=== PATIENT | female | born 1940 | race Caucasian/White ===

== ENCOUNTER 2017-09-08 16:22 | Emergency (ER) | payer MEDICARE, OTHER, MEDICAID ==
[~2017-09-08] VITALS: Ht 157.5 cm; Wt 90.9 kg
[~2017-09-08 16:22] MED LIST: ACET-812 PO; ALBU8.5H8 IH; AMIO100T4 PO; AMLO10TA PO; ATOR20TA66 PO; CALC-331 PO; CHOL100046 PO; DULO60CA64 PO; FURO40TA4 PO; HYDR-569 PO; LEVO100T PO; LISI-600 PO; METO25TA6 PO; NITR0.4T PO; OMEG500C PO; POLY17PO10 PO; POTA10TA36 PO; RIVA20TA PO; TRAZ150T78 PO; VAL5T PO
[2017-09-08] MEDS ORDERED: LIDOcaine 5% patch TP STA (16:38)
[2017-09-08 17:03] LABS: BASOPHILS % (AUTO) 0.3 % (0-1); EOSINOPHILS # (AUTO) 0.2 X10'3 (0-0.9); EOSINOPHILS % (AUTO) 2.2 % (0-6); HEMATOCRIT 37.7 % (35.0-45.0); HEMOGLOBIN 12.8 g/dl (12.0-16.0); LYMPHOCYTES # (AUTO) 2.3 X10'3 (1.1-4.8); LYMPHOCYTES % (AUTO) 24.1 % (21-51); MEAN CORPUSCULAR HEMOGLOBIN 28.8 PG (27.0-31.0); MEAN CORPUSCULAR HGB CONC 34.1 % (33.0-36.5); MEAN CORPUSCULAR VOLUME 84.5 FL (78-98); MEAN PLATELET VOLUME 8.9 FL (7.4-10.4); MONOCYTES # (AUTO) 0.5 X10'3 (0-0.9); MONOCYTES % (AUTO) 5.5 % (2-12); NEUTROPHILS # (AUTO) 6.4 X10'3 (1.8-7.7); NEUTROPHILS % (AUTO) 67.9 % (42-75); PLATELET COUNT 237 X10'3 (140-440); RED BLOOD COUNT 4.46 X10'6 (4.20-5.60); RED CELL DISTRIBUTION WIDTH 14.3 % (11.5-14.5); WHITE BLOOD COUNT 9.4 X10'3 (4.5-11.0)
[2017-09-08 17:18] LABS: ALANINE AMINOTRANSFERASE 23 U/L (12-78); ALBUMIN 4.1 G/DL (3.4-5.0); ALKALINE PHOSPHATASE 104 IU/L (46-116); ANION GAP 8 (8-16); ASPARTATE AMINO TRANSFERASE 17 U/L (10-37); BILIRUBIN,TOTAL 0.4 MG/DL (0.1-1.0); BLOOD UREA NITROGEN 14 MG/DL (7-18); BUN/CREATININE RATIO 11.7 (6.6-38.0); CALCIUM 9.8 MG/DL (8.5-10.1); CHLORIDE 101 MMOL/L (99-107); GLUCOSE 87 MG/DL (70-104); MAGNESIUM 2.1 MG/DL (1.5-2.4); SODIUM 142 MMOL/L (135-145); TOTAL CARBON DIOXIDE 33.3 MMOL/L (24-32); TOTAL PROTEIN 8.1 G/DL (6.4-8.2); eGFR 44 ML/MIN
[2017-09-08] MEDS ORDERED: CYCL-1 PO (20:16)
[2017-09-08] MEDS ORDERED: DICL100G15 TOP (20:16)
[2017-09-08] MEDS ORDERED: LIDO1ADH41 TOP (20:16)
[2017-09-08 21:47] VITALS: BP 151/74
== END 2017-09-08 21:40 | disposition home or self-care (01) ==
LOC: ER 16:22
DX: S16.1XXA Strain of muscle, fascia and tendon at neck level, initial encounter (principal); M65.20 Calcific tendinitis, unspecified site; I48.91 Unspecified atrial fibrillation; I10 Essential (primary) hypertension; J44.9 Chronic obstructive pulmonary disease, unspecified; E03.9 Hypothyroidism, unspecified; I25.10 Atherosclerotic heart disease of native coronary artery without angina pectoris; Z86.718 Personal history of other venous thrombosis and embolism; Z90.49 Acquired absence of other specified parts of digestive tract; Z60.2 Problems related to living alone; Z88.8 Allergy status to other drugs, medicaments and biological substances; X58.XXXA Exposure to other specified factors, initial encounter; Y93.89 Activity, other specified; Y92.89 Other specified places as the place of occurrence of the external cause; Y99.8 Other external cause status
CPT/HCPCS: 36415; 71045; 73030; 80053; 83735; 84484; 85025; 99285

== ENCOUNTER 2018-05-14 22:48 | Inpatient (IN) | payer MEDICARE, OTHER, MEDICAID ==
[~2018-05-14] VITALS: Ht 160 cm; Wt 91.0 kg
[~2018-05-14 22:48] MED LIST changes: +CYCL-1 PO; +DICL100G15 TOP; +HYDR-4383 PO; -HYDR-569 PO; +LIDO1ADH41 TOP
[2018-05-14 23:11] LABS: BASOPHILS % (AUTO) 0.2 % (0-1); EOSINOPHILS % (AUTO) 0.1 % (0-6); HEMATOCRIT 36.9 % (35.0-45.0); HEMOGLOBIN 12.2 g/dl (12.0-16.0); LYMPHOCYTES # (AUTO) 1.8 X10'3 (1.1-4.8); LYMPHOCYTES % (AUTO) 13.1 % (21-51); MEAN CORPUSCULAR HEMOGLOBIN 29.1 PG (27.0-31.0); MEAN CORPUSCULAR VOLUME 88.1 FL (78-98); MEAN PLATELET VOLUME 7.9 FL (7.4-10.4); MONOCYTES # (AUTO) 0.6 X10'3 (0-0.9); MONOCYTES % (AUTO) 4.1 % (2-12); NEUTROPHILS # (AUTO) 11.3 X10'3 (1.8-7.7); NEUTROPHILS % (AUTO) 82.5 % (42-75); PLATELET COUNT 256 X10'3 (140-440); RED BLOOD COUNT 4.19 X10'6 (4.20-5.60); RED CELL DISTRIBUTION WIDTH 13.1 % (11.5-14.5); WHITE BLOOD COUNT 13.7 X10'3 (4.5-11.0)
[2018-05-14 23:28] LABS: ALANINE AMINOTRANSFERASE 37 U/L (12-78); ALBUMIN 3.7 G/DL (3.4-5.0); ALBUMIN/GLOBULIN RATIO 1.1 (1.1-1.5); ALKALINE PHOSPHATASE 112 IU/L (46-116); ANION GAP 11 (8-16); ASPARTATE AMINO TRANSFERASE 57 U/L (10-37); BILIRUBIN,TOTAL 0.7 MG/DL (0.1-1.0); BLOOD UREA NITROGEN 12 MG/DL (7-18); BUN/CREATININE RATIO 10.5 (6.6-38.0); CHLORIDE 89 MMOL/L (99-107); CREATININE 1.14 MG/DL (0.40-0.90); GLUCOSE 117 MG/DL (70-104); SODIUM 127 MMOL/L (135-145); TOTAL CARBON DIOXIDE 27.2 MMOL/L (24-32); TOTAL PROTEIN 7.2 G/DL (6.4-8.2); eGFR 46 ML/MIN
[2018-05-14 23:32] LABS: CLARITY,URINE CLEAR (Clear); COLOR,URINE YELLOW (Yellow); GLUCOSE, URINE NEGATIVE (Neg); KETONES,URINE 15 mg/dl (Neg); LEUKOCYTE ESTERASE ,URINE NEGATIVE (Neg); NITRITES, URINE NEGATIVE (Neg); OCCULT BLOOD,URINE NEGATIVE (Neg); PH,URINE 7.5 (4.8-8.0); PROTEIN,URINE 100 mg/dl (Neg); UROBILINOGEN,URINE 0.2 E.U/dL (0.2-1.0)
[2018-05-14 23:33] LABS: INR 1.2 INR; PROTHROMBIN TIME 12.8 SECONDS (9.0-12.0)
[2018-05-14 23:33] LABS: URINE HCG NEGATIVE (NEG)
[2018-05-14 23:34] LABS: PARTIAL THROMBOPLASTIN TIME 38 SECONDS (22-32)
[2018-05-14 23:38] LABS: UA COLLECTION TYPE STRAIGHT CATH
[2018-05-14 23:39] LABS: AMORPHOUS URATES 1+; BACTERIA,URINE 1+ /HPF (Neg); RBC,URINE NONE SEEN /HPF (0-2); SQUAMOUS EPITHELIAL CELL,UR FEW /LPF (FEW); WBC,URINE 0-4 /HPF (0-4)
[2018-05-15] MEDS ORDERED: normal saline 1000ML IV soln IVB ONE (00:10)
[2018-05-15] MEDS ORDERED: ondansetron/PF 4mg/2ml inj IV ONE (00:10)
[2018-05-15] MEDS ORDERED: potassium 10mEq/100ml NS w/LIDOcaine (10mg/bag) IV ONE (00:10)
[2018-05-15] MEDS ORDERED: pantoprazole 40 MG vial IV ONE (00:10)
[2018-05-15] MEDS ORDERED: morphine 4 MG/ML inj SYRINge IV ONE (00:10)
[2018-05-15 00:11] LABS: LIPASE 1167 U/L (73-393)
[2018-05-15] MEDS ORDERED: nitroGLYCERIN 0.4mg/hour patch TD ONE (02:40)
[2018-05-15] MEDS: normal saline 1000ml 1,000 ML IV SCH ×3 (02:48→22:48)
[2018-05-15] MEDS ORDERED: magnesium hydroxide 30ml (MOM) UD suspension PO PRN (02:50)
[2018-05-15] MEDS ORDERED: morphine 2 MG/ML inj. syringe IV PRN ×2 (02:50)
[2018-05-15] MEDS ORDERED: magnesium 4gm in 100ml NS 100 ML IV PRN (02:50)
[2018-05-15] MEDS ORDERED: mag hydrox/Alum hydrox/simeth 30ml oral suspension PO PRN (02:50)
[2018-05-15] MEDS ORDERED: potassium Cl 20 mEq SR tablet PO PRN ×2 (02:50)
[2018-05-15] MEDS ORDERED: magnesium 1gm/100ml D5W IVPB 100 ML IV PRN (02:50)
[2018-05-15] MEDS ORDERED: potassium Cl 40MEQ/NS 500ml 500 ML IV PRN ×2 (02:50)
[2018-05-15] MEDS ORDERED: ondansetron/PF 4mg/2ml inj IV PRN (02:50)
[2018-05-15 03:45] VITALS: BP 142/61
[2018-05-15 06:00] VITALS: BP 138/60
[2018-05-15] MEDS: levoTHYROXINE 25mcg tablet PO SCH (07:53)
[2018-05-15] MEDS: atorvastatin 20mg tablet PO SCH (07:54)
[2018-05-15] MEDS: duloxetine 30mg CAPSULE.DR PO SCH (07:54)
[2018-05-15] MEDS: potassium chloride 10mEq ER tablet PO SCH ×2 (07:55→20:34)
[2018-05-15] MEDS: vitamin D (cholecalciferol) 1,000 unit tablet PO SCH ×2 (07:55→20:34)
[2018-05-15] MEDS: calcium carbonate 500mg tablet PO SCH ×2 (07:55→20:34)
[2018-05-15] MEDS: OMEGA-3/DHA/EPA/FISH OIL 1 EACH CAPSULE.DR PO SCH (07:56)
[2018-05-15] MEDS: metoprolol tartrate 12.5mg (1/2 tablet) PO SCH ×2 (08:00→12:11)
[2018-05-15] MEDS: K and/or MAG REPLACEMENT MC SCH (08:00)
[2018-05-15] MEDS ORDERED: enoxaparin 40mg/0.4ml syringe SQ SCH (08:00)
[2018-05-15] MEDS: piperacillin/tazo 3.375gm/50ml 50 ML IV SCH ×3 (08:00→23:43)
[2018-05-15 09:25] LABS: POTASSIUM 3.7 MMOL/L (3.5-5.1)
[2018-05-15 11:00] VITALS: BP 155/53
[2018-05-15] MEDS: amiodarone 100mg tablet PO SCH (11:32)
[2018-05-15 15:00] VITALS: BP 132/57
[2018-05-15 18:00] VITALS: BP 128/53
[2018-05-15] MEDS: acetaminophen 325mg tablet PO PRN (19:40)
[2018-05-15] MEDS: traZODone 150mg tablet PO SCH (20:34)
[2018-05-15] MEDS ORDERED: rivaroxaban 20mg tablet PO SCH ×2 (21:00)
[2018-05-15 22:00] VITALS: BP 124/41
[2018-05-16] VITALS (13 sets, daily range): BP systolic 113–171; BP diastolic 44–83
[2018-05-16 07:28] LABS: BASOPHILS % (AUTO) 0.2 % (0-1); EOSINOPHILS # (AUTO) 0.1 X10'3 (0-0.9); EOSINOPHILS % (AUTO) 1.9 % (0-6); HEMATOCRIT 37.9 % (35.0-45.0); HEMOGLOBIN 12.5 g/dl (12.0-16.0); LYMPHOCYTES % (AUTO) 14.3 % (21-51); MEAN CORPUSCULAR HEMOGLOBIN 29.2 PG (27.0-31.0); MEAN CORPUSCULAR VOLUME 88.5 FL (78-98); MEAN PLATELET VOLUME 8.4 FL (7.4-10.4); MONOCYTES # (AUTO) 0.5 X10'3 (0-0.9); MONOCYTES % (AUTO) 7.1 % (2-12); NEUTROPHILS # (AUTO) 5.4 X10'3 (1.8-7.7); NEUTROPHILS % (AUTO) 76.5 % (42-75); PLATELET COUNT 260 X10'3 (140-440); RED BLOOD COUNT 4.28 X10'6 (4.20-5.60); RED CELL DISTRIBUTION WIDTH 13.8 % (11.5-14.5); WHITE BLOOD COUNT 7.1 X10'3 (4.5-11.0)
[2018-05-16 07:47] LABS: ALANINE AMINOTRANSFERASE 331 U/L (12-78); ALBUMIN 3.3 G/DL (3.4-5.0); ALBUMIN/GLOBULIN RATIO 0.9 (1.1-1.5); ALKALINE PHOSPHATASE 233 IU/L (46-116); ANION GAP 8 (8-16); ASPARTATE AMINO TRANSFERASE 195 U/L (10-37); BILIRUBIN,TOTAL 0.6 MG/DL (0.1-1.0); BLOOD UREA NITROGEN 7 MG/DL (7-18); BUN/CREATININE RATIO 8.1 (6.6-38.0); CALCIUM 8.8 MG/DL (8.5-10.1); CHLORIDE 104 MMOL/L (99-107); CHOL/HDL RATIO 2.2 (0.00-4.99); CHOLESTEROL 117 MG/DL (0-200); CREATININE 0.86 MG/DL (0.40-0.90); GLUCOSE 85 MG/DL (70-104); HDL CHOLESTEROL 54 MG/DL (35-60); LDL CHOLESTEROL 49 MG/DL (50-100); LIPASE 410 U/L (73-393); MAGNESIUM 1.9 MG/DL (1.5-2.4); PHOSPHORUS 3.5 MG/DL (2.3-4.5); POTASSIUM 3.7 MMOL/L (3.5-5.1); SODIUM 144 MMOL/L (135-145); TOTAL CARBON DIOXIDE 31.8 MMOL/L (24-32); TOTAL PROTEIN 7.1 G/DL (6.4-8.2); TRIGLYCERIDES 75 MG/DL (20-135); eGFR 64 ML/MIN
[2018-05-16] MEDS: metoprolol tartrate 12.5mg (1/2 tablet) PO SCH ×2 (07:48→20:23)
[2018-05-16] MEDS: levoTHYROXINE 25mcg tablet PO SCH (07:48)
[2018-05-16] MEDS: amiodarone 100mg tablet PO SCH (07:48)
[2018-05-16] MEDS: piperacillin/tazo 3.375gm/50ml 50 ML IV SCH ×3 (07:49→23:56)
[2018-05-16] MEDS: calcium carbonate 500mg tablet PO SCH ×2 (08:00→20:23)
[2018-05-16] MEDS: atorvastatin 20mg tablet PO SCH (08:00)
[2018-05-16] MEDS: vitamin D (cholecalciferol) 1,000 unit tablet PO SCH ×2 (08:00→20:23)
[2018-05-16] MEDS: duloxetine 30mg CAPSULE.DR PO SCH (08:00)
[2018-05-16] MEDS: OMEGA-3/DHA/EPA/FISH OIL 1 EACH CAPSULE.DR PO SCH (08:00)
[2018-05-16] MEDS: potassium chloride 10mEq ER tablet PO SCH ×2 (08:00→20:23)
[2018-05-16] MEDS: K and/or MAG REPLACEMENT MC SCH (08:00)
[2018-05-16] MEDS: normal saline 1000ml 1,000 ML IV SCH ×2 (08:48→18:48)
[2018-05-16] MEDS ORDERED: fentaNYL/PF 50MCG/1 ML 2ML syringe ONE (15:01)
[2018-05-16] MEDS ORDERED: diphenhydrAMINE 50 mg/ml inj ONE (15:02)
[2018-05-16] MEDS ORDERED: glucagon, human recombinant 1mg kit ONE (15:02)
[2018-05-16] MEDS ORDERED: MIDAZolam 5mg/5ml vial ONE ×2 (15:02)
[2018-05-16] MEDS ORDERED: iohexol 300 MG/1 ML 50ml polymer ONE (15:02)
[2018-05-16] MEDS ORDERED: LIDOcaine Viscous 15ml cup ONE (15:02)
[2018-05-16] MEDS: traZODone 150mg tablet PO SCH (20:23)
[2018-05-16] MEDS: lactobacillus rhamnosus 10,000 MMU CELLS/CAPSULE PO SCH (20:23)
[2018-05-16] MEDS: acetaminophen 325mg tablet PO PRN (20:31)
[2018-05-17 02:00] VITALS: BP 114/36
[2018-05-17] MEDS: normal saline 1000ml 1,000 ML IV SCH (04:48)
[2018-05-17 06:00] VITALS: BP 149/47
[2018-05-17 06:18] LABS: BASOPHILS % (AUTO) 0.1 % (0-1); EOSINOPHILS # (AUTO) 0.1 X10'3 (0-0.9); EOSINOPHILS % (AUTO) 1.7 % (0-6); HEMATOCRIT 34.3 % (35.0-45.0); HEMOGLOBIN 11.2 g/dl (12.0-16.0); LYMPHOCYTES # (AUTO) 1.3 X10'3 (1.1-4.8); LYMPHOCYTES % (AUTO) 16.6 % (21-51); MEAN CORPUSCULAR HEMOGLOBIN 29.2 PG (27.0-31.0); MEAN CORPUSCULAR HGB CONC 32.7 % (33.0-36.5); MEAN CORPUSCULAR VOLUME 89.4 FL (78-98); MEAN PLATELET VOLUME 8.7 FL (7.4-10.4); MONOCYTES # (AUTO) 0.6 X10'3 (0-0.9); NEUTROPHILS % (AUTO) 74.6 % (42-75); PLATELET COUNT 223 X10'3 (140-440); RED BLOOD COUNT 3.84 X10'6 (4.20-5.60); RED CELL DISTRIBUTION WIDTH 14.2 % (11.5-14.5)
[2018-05-17 07:01] LABS: ALANINE AMINOTRANSFERASE 197 U/L (12-78); ALBUMIN 2.9 G/DL (3.4-5.0); ALBUMIN/GLOBULIN RATIO 0.9 (1.1-1.5); ALKALINE PHOSPHATASE 180 IU/L (46-116); ANION GAP 13 (8-16); ASPARTATE AMINO TRANSFERASE 79 U/L (10-37); BILIRUBIN,TOTAL 0.4 MG/DL (0.1-1.0); BLOOD UREA NITROGEN 12 MG/DL (7-18); BUN/CREATININE RATIO 12.5 (6.6-38.0); CALCIUM 8.6 MG/DL (8.5-10.1); CHLORIDE 106 MMOL/L (99-107); CREATININE 0.96 MG/DL (0.40-0.90); GLUCOSE 53 MG/DL (70-104); LIPASE 239 U/L (73-393); MAGNESIUM 1.9 MG/DL (1.5-2.4); PHOSPHORUS 3.8 MG/DL (2.3-4.5); POTASSIUM 3.6 MMOL/L (3.5-5.1); SODIUM 144 MMOL/L (135-145); TOTAL CARBON DIOXIDE 24.7 MMOL/L (24-32); TOTAL PROTEIN 6.3 G/DL (6.4-8.2); eGFR 57 ML/MIN
[2018-05-17] MEDS: metoprolol tartrate 12.5mg (1/2 tablet) PO SCH (07:42)
[2018-05-17] MEDS: OMEGA-3/DHA/EPA/FISH OIL 1 EACH CAPSULE.DR PO SCH (07:42)
[2018-05-17] MEDS: acetaminophen 325mg tablet PO PRN ×2 (07:42→12:58)
[2018-05-17] MEDS: potassium chloride 10mEq ER tablet PO SCH (07:43)
[2018-05-17] MEDS: vitamin D (cholecalciferol) 1,000 unit tablet PO SCH (07:43)
[2018-05-17] MEDS: levoTHYROXINE 25mcg tablet PO SCH (07:44)
[2018-05-17] MEDS: atorvastatin 20mg tablet PO SCH (07:45)
[2018-05-17] MEDS: lactobacillus rhamnosus 10,000 MMU CELLS/CAPSULE PO SCH (07:45)
[2018-05-17] MEDS: duloxetine 30mg CAPSULE.DR PO SCH (07:46)
[2018-05-17] MEDS: calcium carbonate 500mg tablet PO SCH (07:46)
[2018-05-17] MEDS: amiodarone 100mg tablet PO SCH (07:47)
[2018-05-17] MEDS: piperacillin/tazo 3.375gm/50ml 50 ML IV SCH (07:47)
[2018-05-17] MEDS: K and/or MAG REPLACEMENT MC SCH (08:00)
[2018-05-17] MEDS ORDERED: LACT1CAP26 PO (10:41)
[2018-05-17] MEDS ORDERED: AMOX-419 PO (10:41)
== END 2018-05-17 13:55 | disposition home health service (06) | DRG 438 ==
LOC: ER 22:48 → ED HOLD 05-15 02:48 → PCU 3S 05-15 03:45 → CMPBEDREQ 05-15 04:12
PROVIDERS: ADMIT Family Medicine; ATTEND Family Medicine
PROC: 0F798ZZ Dilation of Common Bile Duct, Via Natural or Artificial Opening Endoscopic (ICD-10-PCS; principal; 2018-05-16)
PROC: BF101ZZ Fluoroscopy of Bile Ducts using Low Osmolar Contrast (ICD-10-PCS; 2018-05-16)
DX: K85.90 Acute pancreatitis without necrosis or infection, unspecified (principal); I21.A1 Myocardial infarction type 2; E87.1 Hypo-osmolality and hyponatremia; K80.50 Calculus of bile duct without cholangitis or cholecystitis without obstruction; E87.6 Hypokalemia; E03.9 Hypothyroidism, unspecified; E86.0 Dehydration; E86.1 Hypovolemia; E83.42 Hypomagnesemia; I11.0 Hypertensive heart disease with heart failure; K83.8 Other specified diseases of biliary tract; I25.10 Atherosclerotic heart disease of native coronary artery without angina pectoris; Z60.2 Problems related to living alone; F32.9 Major depressive disorder, single episode, unspecified; B95.62 Methicillin resistant Staphylococcus aureus infection as the cause of diseases classified elsewhere; I48.2 Chronic atrial fibrillation; I50.9 Heart failure, unspecified; J44.9 Chronic obstructive pulmonary disease, unspecified; N28.1 Cyst of kidney, acquired; Z66 Do not resuscitate; Z90.49 Acquired absence of other specified parts of digestive tract; Z98.51 Tubal ligation status; Z88.8 Allergy status to other drugs, medicaments and biological substances; Z88.6 Allergy status to analgesic agent; Z79.899 Other long term (current) drug therapy; Z86.718 Personal history of other venous thrombosis and embolism; Z82.49 Family history of ischemic heart disease and other diseases of the circulatory system
CPT/HCPCS: 36415; 71045; 74176; 74181; 80053; 80061; 81001; 81025; 83605; 83690; 83735; 84100; 84132; 84145; 84443; 84484; 85025; 85610; 85730; 87040; 87070; 93005; 96361; 96374; 96375; 99152; 99153; 99285; A4620; C9113; J1200; J1610; J2250; J2270; J2405; J2543; J3010; J3480; J7030; Q9967

== ENCOUNTER 2018-05-19 00:45 | Inpatient (IN) | payer MEDICARE, OTHER, MEDICAID ==
[2018-05-19] VITALS (20 sets, daily range): BP systolic 95–151; BP diastolic 38–81
[~2018-05-19] VITALS: Ht 160 cm; Wt 90.9 kg
[~2018-05-19 00:45] MED LIST changes: -ALBU8.5H8 IH; -AMLO10TA PO; +AMOX-419 PO; -CYCL-1 PO; -DICL100G15 TOP; -HYDR-4383 PO; +LACT1CAP26 PO; -LIDO1ADH41 TOP; -POLY17PO10 PO; -VAL5T PO
[2018-05-19] MEDS ORDERED: normal saline 1000ML IV soln IV ONE (01:40)
[2018-05-19] MEDS ORDERED: pantoprazole 40 MG vial IV ONE (01:40)
[2018-05-19] MEDS ORDERED: tranexamic acid 100mg/ml inj. IV ONE (01:50)
[2018-05-19] MEDS ORDERED: TRANEXAMIC ACID IV ONE (01:55)
[2018-05-19] MEDS ORDERED: NORMAL SALINE IV ONE (01:55)
[2018-05-19 02:00] LABS: BASOPHILS % (AUTO) 0.2 % (0-1); EOSINOPHILS # (AUTO) 0.2 X10'3 (0-0.9); EOSINOPHILS % (AUTO) 1.9 % (0-6); HEMOGLOBIN 7.4 g/dl (12.0-16.0); LYMPHOCYTES # (AUTO) 0.8 X10'3 (1.1-4.8); LYMPHOCYTES % (AUTO) 9.1 % (21-51); MEAN CORPUSCULAR HEMOGLOBIN 29.5 PG (27.0-31.0); MEAN CORPUSCULAR HGB CONC 33.5 % (33.0-36.5); MEAN PLATELET VOLUME 9.1 FL (7.4-10.4); MONOCYTES # (AUTO) 0.4 X10'3 (0-0.9); MONOCYTES % (AUTO) 4.3 % (2-12); NEUTROPHILS # (AUTO) 7.7 X10'3 (1.8-7.7); NEUTROPHILS % (AUTO) 84.5 % (42-75); PLATELET COUNT 239 X10'3 (140-440); RED CELL DISTRIBUTION WIDTH 13.5 % (11.5-14.5); WHITE BLOOD COUNT 9.2 X10'3 (4.5-11.0)
[2018-05-19 02:03] LABS: INR 1.1 INR; PARTIAL THROMBOPLASTIN TIME 25 SECONDS (22-32); PROTHROMBIN TIME 11.3 SECONDS (9.0-12.0)
[2018-05-19 02:04] LABS: ALANINE AMINOTRANSFERASE 87 U/L (12-78); ALBUMIN 2.5 G/DL (3.4-5.0); ALBUMIN/GLOBULIN RATIO 0.9 (1.1-1.5); ALKALINE PHOSPHATASE 108 IU/L (46-116); ANION GAP 10 (8-16); ASPARTATE AMINO TRANSFERASE 36 U/L (10-37); BILIRUBIN,TOTAL 0.3 MG/DL (0.1-1.0); BLOOD UREA NITROGEN 32 MG/DL (7-18); BUN/CREATININE RATIO 24.8 (6.6-38.0); CALCIUM 8.6 MG/DL (8.5-10.1); CHLORIDE 104 MMOL/L (99-107); CREATININE 1.29 MG/DL (0.40-0.90); GLUCOSE 146 MG/DL (70-104); POTASSIUM 4.2 MMOL/L (3.5-5.1); SODIUM 141 MMOL/L (135-145); TOTAL CARBON DIOXIDE 26.6 MMOL/L (24-32); TOTAL PROTEIN 5.3 G/DL (6.4-8.2); eGFR 40 ML/MIN
[2018-05-19 02:06] LABS: OCCULT BLOOD STOOL POSITIVE (Neg)
[2018-05-19] MEDS ORDERED: ondansetron/PF 4mg/2ml inj IV ONE ×2 (02:45→03:55)
[2018-05-19] MEDS ORDERED: morphine 4 MG/ML inj SYRINge IV ONE (03:55)
[2018-05-19] MEDS ORDERED: morphine 2 MG/ML inj. syringe IV PRN (04:00)
[2018-05-19] MEDS ORDERED: ondansetron/PF 4mg/2ml inj IV PRN (04:00)
[2018-05-19 04:23] LABS: CLARITY,URINE CLEAR (Clear); COLOR,URINE YELLOW (Yellow); GLUCOSE, URINE NEGATIVE (Neg); KETONES,URINE 15 mg/dl (Neg); LEUKOCYTE ESTERASE ,URINE NEGATIVE (Neg); NITRITES, URINE NEGATIVE (Neg); OCCULT BLOOD,URINE TRACE-INTACT (Neg); PH,URINE 5.5 (4.8-8.0); PROTEIN,URINE NEGATIVE (Neg); UROBILINOGEN,URINE 0.2 E.U/dL (0.2-1.0)
[2018-05-19 04:26] LABS: UA COLLECTION TYPE FOLEY CATH
[2018-05-19] MEDS: normal saline 1000ml 1,000 ML IV SCH ×3 (04:38→23:10)
[2018-05-19 04:52] LABS: HYALINE CASTS 0-3 /LPF (NEGATIVE); MUCUS STRANDS FEW /LPF (Neg); SQUAMOUS EPITHELIAL CELL,UR FEW /LPF (FEW)
[2018-05-19 04:57] LABS: BACTERIA,URINE NONE SEEN /HPF (Neg); RBC,URINE 0-2 /HPF (0-2); WBC,URINE 0-4 /HPF (0-4)
[2018-05-19] MEDS ORDERED: amox tr/potassium clavulanate 500mg/125mg TAB PO SCH (08:00)
[2018-05-19] MEDS: amiodarone 100mg tablet PO SCH (09:28)
[2018-05-19] MEDS: levoTHYROXINE 25mcg tablet PO SCH (09:28)
[2018-05-19] MEDS: duloxetine 30mg CAPSULE.DR PO SCH (09:28)
[2018-05-19] MEDS ORDERED: potassium Cl 20 mEq SR tablet PO PRN (11:00)
[2018-05-19] MEDS ORDERED: magnesium 4gm in 100ml NS 100 ML IV PRN (11:00)
[2018-05-19] MEDS ORDERED: magnesium Cl slow-release 64mg tablet PO PRN (11:00)
[2018-05-19] MEDS ORDERED: potassium Cl 40MEQ/NS 500ml 500 ML IV PRN ×2 (11:00)
[2018-05-19] MEDS: acetaminophen 325mg tablet PO PRN (11:15)
[2018-05-19 14:57] LABS: BASOPHILS # (AUTO) 0.1 X10'3 (0-0.2); BASOPHILS % (AUTO) 0.4 % (0-1); EOSINOPHILS % (AUTO) 0 % (0-6); HEMATOCRIT 26.6 % (35.0-45.0); MEAN CORPUSCULAR HEMOGLOBIN 30.5 PG (27.0-31.0); MEAN CORPUSCULAR HGB CONC 33.7 % (33.0-36.5); MEAN CORPUSCULAR VOLUME 90.5 FL (78-98); MEAN PLATELET VOLUME 8.3 FL (7.4-10.4); MONOCYTES # (AUTO) 0.8 X10'3 (0-0.9); MONOCYTES % (AUTO) 5.1 % (2-12); NEUTROPHILS # (AUTO) 14.5 X10'3 (1.8-7.7); NEUTROPHILS % (AUTO) 88.5 % (42-75); PLATELET COUNT 207 X10'3 (140-440); RED BLOOD COUNT 2.94 X10'6 (4.20-5.60); RED CELL DISTRIBUTION WIDTH 14.6 % (11.5-14.5); WHITE BLOOD COUNT 16.4 X10'3 (4.5-11.0)
[2018-05-19] MEDS: piperacillin/tazo 3.375gm/50ml 50 ML IV SCH ×2 (17:24→23:11)
[2018-05-19] MEDS ORDERED: fentaNYL/PF 50MCG/1 ML 2ML syringe ONE (18:10)
[2018-05-19] MEDS ORDERED: MIDAZolam 5mg/5ml vial ONE (18:10)
[2018-05-19] MEDS ORDERED: LIDOcaine Viscous 15ml cup ONE (18:10)
[2018-05-19] MEDS: sucralfate 1 gm tablet PO SCH (23:10)
[2018-05-19] MEDS: traZODone 150mg tablet PO SCH (23:11)
[2018-05-19] MEDS: lactobacillus rhamnosus 10,000 MMU CELLS/CAPSULE PO SCH (23:11)
[2018-05-20] VITALS (12 sets, daily range): BP systolic 114–138; BP diastolic 45–80
[2018-05-20] MEDS: piperacillin/tazo 3.375gm/50ml 50 ML IV SCH ×4 (02:30→20:54)
[2018-05-20 05:11] LABS: BASOPHILS % (AUTO) 0.2 % (0-1); EOSINOPHILS # (AUTO) 0.1 X10'3 (0-0.9); EOSINOPHILS % (AUTO) 1.1 % (0-6); HEMOGLOBIN 7.3 g/dl (12.0-16.0); LYMPHOCYTES # (AUTO) 1.6 X10'3 (1.1-4.8); LYMPHOCYTES % (AUTO) 17.1 % (21-51); MEAN CORPUSCULAR HEMOGLOBIN 30.6 PG (27.0-31.0); MEAN CORPUSCULAR HGB CONC 33.5 % (33.0-36.5); MEAN CORPUSCULAR VOLUME 91.4 FL (78-98); MEAN PLATELET VOLUME 8.2 FL (7.4-10.4); MONOCYTES # (AUTO) 0.6 X10'3 (0-0.9); MONOCYTES % (AUTO) 6.5 % (2-12); NEUTROPHILS % (AUTO) 75.1 % (42-75); PLATELET COUNT 189 X10'3 (140-440); RED BLOOD COUNT 2.39 X10'6 (4.20-5.60); RED CELL DISTRIBUTION WIDTH 15.1 % (11.5-14.5); WHITE BLOOD COUNT 9.3 X10'3 (4.5-11.0)
[2018-05-20 05:22] LABS: HEMATOCRIT 21.8 % (35.0-45.0)
[2018-05-20 05:28] LABS: ALANINE AMINOTRANSFERASE 70 U/L (12-78); ALBUMIN 2.1 G/DL (3.4-5.0); ALBUMIN/GLOBULIN RATIO 0.8 (1.1-1.5); ALKALINE PHOSPHATASE 91 IU/L (46-116); ANION GAP 6 (8-16); ASPARTATE AMINO TRANSFERASE 34 U/L (10-37); BILIRUBIN,TOTAL 0.4 MG/DL (0.1-1.0); BLOOD UREA NITROGEN 27 MG/DL (7-18); BUN/CREATININE RATIO 30.7 (6.6-38.0); CALCIUM 7.6 MG/DL (8.5-10.1); CHLORIDE 112 MMOL/L (99-107); CREATININE 0.88 MG/DL (0.40-0.90); GLUCOSE 86 MG/DL (70-104); MAGNESIUM 1.8 MG/DL (1.5-2.4); POTASSIUM 3.4 MMOL/L (3.5-5.1); SODIUM 147 MMOL/L (135-145); TOTAL CARBON DIOXIDE 29.3 MMOL/L (24-32); TOTAL PROTEIN 4.8 G/DL (6.4-8.2); eGFR 63 ML/MIN
[2018-05-20] MEDS: levoTHYROXINE 25mcg tablet PO SCH (08:17)
[2018-05-20] MEDS: lactobacillus rhamnosus 10,000 MMU CELLS/CAPSULE PO SCH ×2 (08:17→20:55)
[2018-05-20] MEDS: amiodarone 100mg tablet PO SCH (08:17)
[2018-05-20] MEDS: sucralfate 1 gm tablet PO SCH ×4 (08:18→20:55)
[2018-05-20] MEDS: duloxetine 30mg CAPSULE.DR PO SCH (08:18)
[2018-05-20] MEDS: pantoprazole 40 MG vial IV SCH ×2 (09:53→20:59)
[2018-05-20] MEDS: acetaminophen 325mg tablet PO PRN ×3 (11:15→20:56)
[2018-05-20] MEDS: traZODone 150mg tablet PO SCH (20:55)
[2018-05-21] VITALS: BP 136/55
[2018-05-21] MEDS: piperacillin/tazo 3.375gm/50ml 50 ML IV SCH ×4 (01:19→20:17)
[2018-05-21] MEDS: acetaminophen 325mg tablet PO PRN ×5 (01:20→20:12)
[2018-05-21 06:57] LABS: BASOPHILS % (AUTO) 0.1 % (0-1); EOSINOPHILS # (AUTO) 0.3 X10'3 (0-0.9); EOSINOPHILS % (AUTO) 3.8 % (0-6); HEMATOCRIT 30.6 % (35.0-45.0); HEMOGLOBIN 10.3 g/dl (12.0-16.0); LYMPHOCYTES # (AUTO) 1.5 X10'3 (1.1-4.8); LYMPHOCYTES % (AUTO) 18.5 % (21-51); MEAN CORPUSCULAR HEMOGLOBIN 30.5 PG (27.0-31.0); MEAN CORPUSCULAR HGB CONC 33.8 % (33.0-36.5); MEAN CORPUSCULAR VOLUME 90.2 FL (78-98); MEAN PLATELET VOLUME 8.3 FL (7.4-10.4); MONOCYTES # (AUTO) 0.5 X10'3 (0-0.9); MONOCYTES % (AUTO) 6.8 % (2-12); NEUTROPHILS # (AUTO) 5.7 X10'3 (1.8-7.7); NEUTROPHILS % (AUTO) 70.8 % (42-75); PLATELET COUNT 200 X10'3 (140-440); RED BLOOD COUNT 3.39 X10'6 (4.20-5.60); RED CELL DISTRIBUTION WIDTH 14.8 % (11.5-14.5); WHITE BLOOD COUNT 8.1 X10'3 (4.5-11.0)
[2018-05-21 07:22] LABS: ALANINE AMINOTRANSFERASE 64 U/L (12-78); ALBUMIN 2.3 G/DL (3.4-5.0); ALBUMIN/GLOBULIN RATIO 0.8 (1.1-1.5); ALKALINE PHOSPHATASE 100 IU/L (46-116); ANION GAP 7 (8-16); ASPARTATE AMINO TRANSFERASE 25 U/L (10-37); BILIRUBIN,TOTAL 0.4 MG/DL (0.1-1.0); BLOOD UREA NITROGEN 14 MG/DL (7-18); BUN/CREATININE RATIO 18.2 (6.6-38.0); CHLORIDE 106 MMOL/L (99-107); CREATININE 0.77 MG/DL (0.40-0.90); GLUCOSE 84 MG/DL (70-104); MAGNESIUM 1.6 MG/DL (1.5-2.4); PHOSPHORUS 2.8 MG/DL (2.3-4.5); SODIUM 144 MMOL/L (135-145); TOTAL CARBON DIOXIDE 31.2 MMOL/L (24-32); TOTAL PROTEIN 5.2 G/DL (6.4-8.2); eGFR 73 ML/MIN
[2018-05-21 08:23] VITALS: BP 150/64
[2018-05-21] MEDS: amiodarone 100mg tablet PO SCH (08:54)
[2018-05-21] MEDS: levoTHYROXINE 25mcg tablet PO SCH (08:54)
[2018-05-21] MEDS: sucralfate 1 gm tablet PO SCH ×4 (08:54→20:12)
[2018-05-21] MEDS: duloxetine 30mg CAPSULE.DR PO SCH (08:55)
[2018-05-21] MEDS: lactobacillus rhamnosus 10,000 MMU CELLS/CAPSULE PO SCH ×2 (08:55→20:12)
[2018-05-21] MEDS: potassium Cl 20 mEq SR tablet PO PRN ×3 (08:56→17:27)
[2018-05-21 11:00] VITALS: BP 156/49
[2018-05-21] MEDS: pantoprazole 40 MG vial IV SCH ×2 (12:54→20:13)
[2018-05-21 13:28] VITALS: BP 164/73
[2018-05-21 19:00] VITALS: BP 116/44
[2018-05-21] MEDS: traZODone 150mg tablet PO SCH (20:12)
[2018-05-21] MEDS: diazepam 5mg tablet PO PRN (23:31)
[2018-05-22] VITALS: BP 128/47
[2018-05-22] MEDS: piperacillin/tazo 3.375gm/50ml 50 ML IV SCH ×4 (03:33→20:16)
[2018-05-22 06:39] LABS: BASOPHILS % (AUTO) 0.3 % (0-1); EOSINOPHILS # (AUTO) 0.3 X10'3 (0-0.9); EOSINOPHILS % (AUTO) 4.8 % (0-6); HEMATOCRIT 33.8 % (35.0-45.0); HEMOGLOBIN 11.2 g/dl (12.0-16.0); LYMPHOCYTES # (AUTO) 1.5 X10'3 (1.1-4.8); LYMPHOCYTES % (AUTO) 20.8 % (21-51); MEAN CORPUSCULAR HEMOGLOBIN 30.3 PG (27.0-31.0); MEAN CORPUSCULAR HGB CONC 33.2 % (33.0-36.5); MEAN CORPUSCULAR VOLUME 91.1 FL (78-98); MONOCYTES # (AUTO) 0.5 X10'3 (0-0.9); MONOCYTES % (AUTO) 6.6 % (2-12); NEUTROPHILS # (AUTO) 4.9 X10'3 (1.8-7.7); NEUTROPHILS % (AUTO) 67.5 % (42-75); PLATELET COUNT 228 X10'3 (140-440); RED BLOOD COUNT 3.71 X10'6 (4.20-5.60); RED CELL DISTRIBUTION WIDTH 15.1 % (11.5-14.5); WHITE BLOOD COUNT 7.2 X10'3 (4.5-11.0)
[2018-05-22 07:00] VITALS: BP 146/69
[2018-05-22 07:01] LABS: ALANINE AMINOTRANSFERASE 52 U/L (12-78); ALBUMIN 2.3 G/DL (3.4-5.0); ALBUMIN/GLOBULIN RATIO 0.7 (1.1-1.5); ALKALINE PHOSPHATASE 100 IU/L (46-116); ANION GAP 7 (8-16); ASPARTATE AMINO TRANSFERASE 19 U/L (10-37); BILIRUBIN,TOTAL 0.3 MG/DL (0.1-1.0); BLOOD UREA NITROGEN 10 MG/DL (7-18); CALCIUM 8.7 MG/DL (8.5-10.1); CHLORIDE 106 MMOL/L (99-107); CREATININE 0.77 MG/DL (0.40-0.90); GLUCOSE 117 MG/DL (70-104); MAGNESIUM 1.8 MG/DL (1.5-2.4); POTASSIUM 3.7 MMOL/L (3.5-5.1); SODIUM 145 MMOL/L (135-145); TOTAL CARBON DIOXIDE 32.4 MMOL/L (24-32); TOTAL PROTEIN 5.5 G/DL (6.4-8.2); eGFR 73 ML/MIN
[2018-05-22] MEDS: duloxetine 30mg CAPSULE.DR PO SCH (08:17)
[2018-05-22] MEDS: pantoprazole 40 MG vial IV SCH ×2 (08:17→20:15)
[2018-05-22] MEDS: lactobacillus rhamnosus 10,000 MMU CELLS/CAPSULE PO SCH ×2 (08:17→20:16)
[2018-05-22] MEDS: amiodarone 100mg tablet PO SCH (08:17)
[2018-05-22] MEDS: levoTHYROXINE 25mcg tablet PO SCH (08:17)
[2018-05-22] MEDS: sucralfate 1 gm tablet PO SCH ×4 (08:17→20:16)
[2018-05-22 11:42] VITALS: BP 142/84
[2018-05-22] MEDS: acetaminophen 325mg tablet PO PRN ×2 (14:07→20:16)
[2018-05-22 19:00] VITALS: BP 135/79
[2018-05-22] MEDS: traZODone 150mg tablet PO SCH (20:16)
[2018-05-23] VITALS: BP 137/70
[2018-05-23] MEDS: piperacillin/tazo 3.375gm/50ml 50 ML IV SCH ×2 (02:54→08:14)
[2018-05-23] MEDS: diazepam 5mg tablet PO PRN (03:54)
[2018-05-23] MEDS: acetaminophen 325mg tablet PO PRN ×2 (03:54→12:02)
[2018-05-23 05:13] LABS: BASOPHILS % (AUTO) 0 % (0-1); EOSINOPHILS # (AUTO) 0.3 X10'3 (0-0.9); EOSINOPHILS % (AUTO) 4.8 % (0-6); HEMATOCRIT 35.5 % (35.0-45.0); HEMOGLOBIN 11.6 g/dl (12.0-16.0); LYMPHOCYTES # (AUTO) 1.7 X10'3 (1.1-4.8); LYMPHOCYTES % (AUTO) 23.6 % (21-51); MEAN CORPUSCULAR HEMOGLOBIN 29.8 PG (27.0-31.0); MEAN CORPUSCULAR HGB CONC 32.6 % (33.0-36.5); MEAN CORPUSCULAR VOLUME 91.2 FL (78-98); MEAN PLATELET VOLUME 8.1 FL (7.4-10.4); MONOCYTES # (AUTO) 0.5 X10'3 (0-0.9); MONOCYTES % (AUTO) 6.7 % (2-12); NEUTROPHILS # (AUTO) 4.6 X10'3 (1.8-7.7); NEUTROPHILS % (AUTO) 64.9 % (42-75); PLATELET COUNT 284 X10'3 (140-440); RED CELL DISTRIBUTION WIDTH 14.9 % (11.5-14.5); WHITE BLOOD COUNT 7.1 X10'3 (4.5-11.0)
[2018-05-23 05:44] LABS: ALANINE AMINOTRANSFERASE 47 U/L (12-78); ALBUMIN 2.5 G/DL (3.4-5.0); ALBUMIN/GLOBULIN RATIO 0.7 (1.1-1.5); ALKALINE PHOSPHATASE 107 IU/L (46-116); ANION GAP 8 (8-16); ASPARTATE AMINO TRANSFERASE 15 U/L (10-37); BILIRUBIN,TOTAL 0.3 MG/DL (0.1-1.0); BLOOD UREA NITROGEN 9 MG/DL (7-18); BUN/CREATININE RATIO 9.5 (6.6-38.0); CALCIUM 8.7 MG/DL (8.5-10.1); CHLORIDE 103 MMOL/L (99-107); CREATININE 0.95 MG/DL (0.40-0.90); GLUCOSE 109 MG/DL (70-104); MAGNESIUM 1.7 MG/DL (1.5-2.4); PHOSPHORUS 3.7 MG/DL (2.3-4.5); POTASSIUM 3.2 MMOL/L (3.5-5.1); SODIUM 145 MMOL/L (135-145); TOTAL CARBON DIOXIDE 33.7 MMOL/L (24-32); TOTAL PROTEIN 5.9 G/DL (6.4-8.2); eGFR 57 ML/MIN
[2018-05-23 07:00] VITALS: BP 146/59
[2018-05-23] MEDS: duloxetine 30mg CAPSULE.DR PO SCH (08:06)
[2018-05-23] MEDS: levoTHYROXINE 25mcg tablet PO SCH (08:06)
[2018-05-23] MEDS: lactobacillus rhamnosus 10,000 MMU CELLS/CAPSULE PO SCH (08:06)
[2018-05-23] MEDS: amiodarone 100mg tablet PO SCH (08:06)
[2018-05-23] MEDS: pantoprazole 40 MG vial IV SCH (08:06)
[2018-05-23] MEDS: sucralfate 1 gm tablet PO SCH ×2 (08:22→11:59)
[2018-05-23 11:00] VITALS: BP 136/59
== END 2018-05-23 14:30 | DRG 920 ==
LOC: ER 00:46 → SUR 3N 03:58 → CMPBEDREQ 19:51
PROVIDERS: ADMIT Internal Medicine; ATTEND Internal Medicine
PROC: 0DJ08ZZ Inspection of Upper Intestinal Tract, Via Natural or Artificial Opening Endoscopic (ICD-10-PCS; principal; 2018-05-19)
PROC: 30233N1 Transfusion of Nonautologous Red Blood Cells into Peripheral Vein, Percutaneous Approach (ICD-10-PCS; 2018-05-19)
PROC: 30233N1 Transfusion of Nonautologous Red Blood Cells into Peripheral Vein, Percutaneous Approach (ICD-10-PCS; 2018-05-20)
DX: K91.840 Postprocedural hemorrhage of a digestive system organ or structure following a digestive system procedure (principal); D62 Acute posthemorrhagic anemia; N17.9 Acute kidney failure, unspecified; D68.32 Hemorrhagic disorder due to extrinsic circulating anticoagulants; K92.2 Gastrointestinal hemorrhage, unspecified; F32.9 Major depressive disorder, single episode, unspecified; E87.6 Hypokalemia; E03.9 Hypothyroidism, unspecified; E78.5 Hyperlipidemia, unspecified; I11.0 Hypertensive heart disease with heart failure; T45.515A Adverse effect of anticoagulants, initial encounter; I25.10 Atherosclerotic heart disease of native coronary artery without angina pectoris; I48.2 Chronic atrial fibrillation; Z60.2 Problems related to living alone; I50.9 Heart failure, unspecified; J44.9 Chronic obstructive pulmonary disease, unspecified; Z66 Do not resuscitate; Y84.8 Other medical procedures as the cause of abnormal reaction of the patient, or of later complication, without mention of misadventure at the time of the procedure; Z90.49 Acquired absence of other specified parts of digestive tract; Z79.899 Other long term (current) drug therapy; Z79.02 Long term (current) use of antithrombotics/antiplatelets; Z88.6 Allergy status to analgesic agent; Z88.8 Allergy status to other drugs, medicaments and biological substances; Z87.440 Personal history of urinary (tract) infections; Z82.49 Family history of ischemic heart disease and other diseases of the circulatory system; Y92.89 Other specified places as the place of occurrence of the external cause
CPT/HCPCS: 36415; 71045; 74176; 80053; 81001; 82140; 82272; 83605; 83735; 84100; 84132; 85025; 85610; 85730; 86885; 86900; 86901; 86920; 87040; 87070; 93005; 96361; 96374; 96376; 97116; 97161; 99152; 99291; A4620; C9113; G0378; J2250; J2270; J2405; J2543; J3010; J7030; P9016

== ENCOUNTER 2018-06-30 13:14 | Emergency (ER) | payer MEDICARE, OTHER, MEDICAID ==
[~2018-06-30] VITALS: Ht 160 cm; Wt 80.5 kg
[~2018-06-30 13:14] MED LIST changes: -AMOX-419 PO; -RIVA20TA PO
[2018-06-30 13:47] LABS: BASOPHILS % (AUTO) 0.3 % (0-1); EOSINOPHILS # (AUTO) 0.2 X10'3 (0-0.9); EOSINOPHILS % (AUTO) 2.1 % (0-6); HEMATOCRIT 37.5 % (35.0-45.0); HEMOGLOBIN 12.4 g/dl (12.0-16.0); LYMPHOCYTES # (AUTO) 1.5 X10'3 (1.1-4.8); LYMPHOCYTES % (AUTO) 18.4 % (21-51); MEAN CORPUSCULAR HEMOGLOBIN 29.3 PG (27.0-31.0); MEAN CORPUSCULAR HGB CONC 32.9 % (33.0-36.5); MEAN CORPUSCULAR VOLUME 88.9 FL (78-98); MEAN PLATELET VOLUME 8.9 FL (7.4-10.4); MONOCYTES # (AUTO) 0.4 X10'3 (0-0.9); MONOCYTES % (AUTO) 5.2 % (2-12); NEUTROPHILS # (AUTO) 6.1 X10'3 (1.8-7.7); PLATELET COUNT 242 X10'3 (140-440); RED BLOOD COUNT 4.22 X10'6 (4.20-5.60); RED CELL DISTRIBUTION WIDTH 13.4 % (11.5-14.5); WHITE BLOOD COUNT 8.3 X10'3 (4.5-11.0)
[2018-06-30 13:48] LABS: CLARITY,URINE CLEAR (Clear); COLOR,URINE STRAW (Yellow); GLUCOSE, URINE NEGATIVE (Neg); KETONES,URINE NEGATIVE (Neg); LEUKOCYTE ESTERASE ,URINE NEGATIVE (Neg); NITRITES, URINE NEGATIVE (Neg); OCCULT BLOOD,URINE NEGATIVE (Neg); PROTEIN,URINE NEGATIVE (Neg); UROBILINOGEN,URINE 0.2 E.U/dL (0.2-1.0)
[2018-06-30 13:51] LABS: UA COLLECTION TYPE CLN CATCH MIDSTREAM
[2018-06-30 14:01] LABS: ALANINE AMINOTRANSFERASE 22 U/L (12-78); ALBUMIN 3.7 G/DL (3.4-5.0); ALBUMIN/GLOBULIN RATIO 1.1 (1.1-1.5); ALKALINE PHOSPHATASE 95 IU/L (46-116); ANION GAP 6 (8-16); ASPARTATE AMINO TRANSFERASE 16 U/L (10-37); BILIRUBIN,TOTAL 0.3 MG/DL (0.1-1.0); BLOOD UREA NITROGEN 13 MG/DL (7-18); BUN/CREATININE RATIO 12.3 (6.6-38.0); CALCIUM 9.4 MG/DL (8.5-10.1); CHLORIDE 98 MMOL/L (99-107); CREATININE 1.06 MG/DL (0.40-0.90); GLUCOSE 85 MG/DL (70-104); POTASSIUM 4.1 MMOL/L (3.5-5.1); SODIUM 137 MMOL/L (135-145); TOTAL CARBON DIOXIDE 32.7 MMOL/L (24-32); TOTAL PROTEIN 7.2 G/DL (6.4-8.2); eGFR 51 ML/MIN
[2018-06-30 14:52] VITALS: BP 151/70
== END 2018-06-30 14:54 | disposition home or self-care (01) ==
LOC: ER 13:14
DX: Z00.00 Encounter for general adult medical examination without abnormal findings (principal); I48.91 Unspecified atrial fibrillation; I11.0 Hypertensive heart disease with heart failure; I50.9 Heart failure, unspecified; J44.9 Chronic obstructive pulmonary disease, unspecified; E03.9 Hypothyroidism, unspecified; Z86.718 Personal history of other venous thrombosis and embolism; Z87.19 Personal history of other diseases of the digestive system; Z88.6 Allergy status to analgesic agent; Z88.8 Allergy status to other drugs, medicaments and biological substances; Z79.899 Other long term (current) drug therapy; Z90.49 Acquired absence of other specified parts of digestive tract
CPT/HCPCS: 36415; 80053; 81003; 85025; 99283

== ENCOUNTER 2024-07-01 13:07 | Emergency (ER) | payer MEDICARE, OTHER, MEDICAID ==
[~2024-07-01] VITALS: Ht 157.5 cm; Wt 76.4 kg
[~2024-07-01 13:07] MED LIST changes: -DULO60CA64 PO; +DULO60CA65 PO; -LISI-600 PO; +LISI20TA28 PO; +LOP25T PO; -METO25TA6 PO; +POTA-206 PO; -POTA10TA36 PO
[2024-07-01 16:14] LABS: BASOPHILS % (AUTO) 0.4 % (0-1); EOSINOPHILS # (AUTO) 0.1 X10'3 (0-0.9); EOSINOPHILS % (AUTO) 1.1 % (0-6); HEMATOCRIT 35.8 % (35.0-45.0); HEMOGLOBIN 12.2 g/dl (12.0-16.0); LYMPHOCYTES # (AUTO) 1.6 X10'3 (1.1-4.8); LYMPHOCYTES % (AUTO) 18.2 % (21-51); MEAN CORPUSCULAR HGB CONC 34.2 g/dL (33.0-36.5); MEAN CORPUSCULAR VOLUME 90.6 FL (78-98); MEAN PLATELET VOLUME 8.7 FL (7.4-10.4); MONOCYTES # (AUTO) 0.5 X10'3 (0-0.9); MONOCYTES % (AUTO) 5.3 % (2-12); NEUTROPHILS # (AUTO) 6.8 X10'3 (1.8-7.7); PLATELET COUNT 225 X10'3 (140-440); RED BLOOD COUNT 3.95 X10'6 (4.20-5.60); RED CELL DISTRIBUTION WIDTH 12.6 % (11.5-14.5)
[2024-07-01 16:20] LABS: BILIRUBIN,URINE NEGATIVE (Neg); CLARITY,URINE CLEAR (Clear); COLOR,URINE YELLOW (Yellow); GLUCOSE, URINE NEGATIVE (Neg); KETONES,URINE NEGATIVE (Neg); LEUKOCYTE ESTERASE ,URINE NEGATIVE (Neg); NITRITES, URINE NEGATIVE (Neg); OCCULT BLOOD,URINE NEGATIVE (Neg); PROTEIN,URINE NEGATIVE (Neg); UROBILINOGEN,URINE 0.2 E.U/dL (0.2-1.0)
[2024-07-01 16:24] LABS: UA COLLECTION TYPE NON-SPECIFIED
[2024-07-01 16:28] LABS: ALBUMIN 3.5 G/DL (3.4-5.0); ALBUMIN/GLOBULIN RATIO 0.8 (1.1-1.5); ALKALINE PHOSPHATASE 125 IU/L (46-116); ANION GAP 8 (8-16); ASPARTATE AMINO TRANSFERASE 20 U/L (10-37); BILIRUBIN,TOTAL 0.5 MG/DL (0.1-1.0); BLOOD UREA NITROGEN 17 MG/DL (7-18); BUN/CREATININE RATIO 17.7 (10.0-20.0); CALCIUM 9.7 MG/DL (8.5-10.1); CHLORIDE 102 MMOL/L (99-107); CREATININE 0.96 MG/DL (0.40-0.90); GLUCOSE 100 MG/DL (70-104); POTASSIUM 3.5 MMOL/L (3.5-5.1); SODIUM 143 MMOL/L (135-145); TOTAL CARBON DIOXIDE 32.6 MMOL/L (24-32); TOTAL PROTEIN 7.7 G/DL (6.4-8.2); eCRCL 36 ML/MIN; eGFR 56 ML/MIN
[2024-07-01 16:48] LABS: ALANINE AMINOTRANSFERASE 22 U/L (12-78); PRO BRAIN NATRIURETIC PEPTIDE 1228 PG/ML (0-450)
[2024-07-01] MEDS: furosemide 10 MG/1 ML 10ml inj IV ONE (19:38)
[2024-07-01] MEDS: furosemide 20MG tablet PO ONE (19:46)
[2024-07-01 19:54] VITALS: BP 152/134; PULSE 88; RESP 16; TEMP 98.4; O2SAT 94
== END 2024-07-01 19:57 | disposition home or self-care (01) ==
LOC: ER 13:08
DX: N81.4 Uterovaginal prolapse, unspecified (principal); I11.0 Hypertensive heart disease with heart failure; I50.9 Heart failure, unspecified; I48.91 Unspecified atrial fibrillation; I25.10 Atherosclerotic heart disease of native coronary artery without angina pectoris; J44.9 Chronic obstructive pulmonary disease, unspecified; Z86.718 Personal history of other venous thrombosis and embolism; Z90.49 Acquired absence of other specified parts of digestive tract; Z88.6 Allergy status to analgesic agent; Z79.899 Other long term (current) drug therapy; Z60.2 Problems related to living alone
CPT/HCPCS: 36415; 71045; 80053; 81003; 83880; 85025; 99284; J1940